=== PATIENT | male | born 1965 | race Hispanic/Latino ===

== ENCOUNTER 2017-07-05 18:28 | Inpatient (IN) | payer MEDICAID ==
--- NOTE | 2017-07-05 19:21 | C.PDOC ---
History Of Present Illness Patient presents to the ER after he used an 8 ball of cocaine along with other drugs stating he wants to jump in front of a train. Denies homicidal ideation or physical complaints at this time. Time Seen by Provider: 07/05/17 19:21 Chief Complaint (Nursing): Psychiatric Evaluation History Per: Patient History/Exam Limitations: no limitations Onset/Duration Of Symptoms: Hrs Current Symptoms Are (Timing): Still Present Suicide/Self Injury Attempted (Context): None Modifying Factor(s): Cocaine Severity: None Pain Scale Rating Of: 0 Associated Symptoms: Suicidal Plan. denies: Depression, Other (Homicidal ideation) Involuntary Hold By: None Recent travel outside of the [place]: No Additional History Per: Patient Past Medical History Reviewed: Historical Data, Nursing Documentation, Vital Signs Vital Signs: Last Vital Signs Temp 98.1 F 07/05/17 22:31 Pulse 72 07/05/17 22:31 Resp 18 07/05/17 22:31 BP 95/48 L 07/05/17 22:31 Pulse Ox 98 07/05/17 23:31 - Medical History PMH: Anxiety, Bipolar Disorder, Depression, HTN Family History: States: No Known Family Hx - Social History Hx Alcohol Use: Yes Hx Substance Use: Yes - Immunization History Hx Tetanus Toxoid Vaccination: No Hx Influenza Vaccination: No Hx Pneumococcal Vaccination: No Review Of Systems Constitutional: Negative for: Fever, Chills Cardiovascular: Negative for: Chest Pain, Palpitations Respiratory: Negative for: Cough, Shortness of Breath Gastrointestinal: Negative for: Nausea, Vomiting Musculoskeletal: Negative for: Back Pain Skin: Positive for: Other (tatoos). Negative for: Rash Neurological: Negative for: Weakness Psych: Positive for: Depression, Suicidal ideation (Jump in front of train). Negative for: Other (Homicidal ideation) Physical Exam - Physical Exam Appears: Non-toxic Skin: Warm, Dry Head: Normacephalic Eye(s): bilateral: Normal Inspection Oral Mucosa: Moist Neck: Supple Chest: Symmetrical, No Tenderness Cardiovascular: Rhythm Regular Respiratory: No Rales, No Rhonchi, No Wheezing Gastrointestinal/Abdominal: Soft, No Tenderness Extremity: Normal ROM Extremity: Bilateral: Atraumatic Neurological/Psych: Oriented x3 Gait: Steady ED Course And Treatment - Laboratory Results Result Diagrams: 07/05/17 19:25 07/05/17 19:25 O2 Sat by Pulse Oximetry: 98 (room air) Pulse Ox Interpretation: Normal Progress Note: Blood work and urinalysis ordered. Crisis notified. Disposition Discussed With Dr.: Ashlie Kirkland Comment: accepted the pt on her service and took over the care at 12:18AM Doctor Will See Patient In The: Hospital Counseled Patient/Family Regarding: Studies Performed, Diagnosis - Disposition Disposition: HOSPITALIZED Disposition Time: 19:21 Condition: FAIR Forms: [facility] (Stateless) - Clinical Impression Clinical Impression: Alcohol abuse, Cocaine abuse, Major depressive disorder, recurrent, unspecified - Scribe Statement The provider has reviewed the documentation as recorded by the Scribe Kvng Camarillo All medical record entries made by the Scribe were at my direction and personally dictated by me. I have reviewed the chart and agree that the record accurately reflects my personal performance of the history, physical exam, medical decision making, and the department course for this patient. I have also personally directed, reviewed, and agree with the discharge instructions and disposition. Decision To Admit - Pt Status Changed To: Hospital Disposition Of: Inpatient - Admit Certification Admit to Inpatient:: After my assessment, the patient will require hospitalization for at least two midnights. This is because of the severity of symptoms shown, intensity of services needed, and/or the medical risk in this patient being treated as an outpatient. - InPatient: Physician Admission Certification: I certify that this patient requires 2 or more midnights of care for the following reason:: After my assessment, the patient will require hospitalization for at least two midnights. This is because of the severity of symptoms shown, intensity of services needed, and/or the medical risk in this patient being treated as an outpatient. - . Bed Request Type: Psychiatry Admitting Physician: Ashlie Kirkland Patient Diagnosis: Alcohol abuse, Cocaine abuse, Major depressive disorder, recurrent, unspecified
[2017-07-05 19:34] LABS: BASO # 0.1 K/uL (0.0-0.2); BASO % 0.8 % (0.0-2.0); EOS % 0.4 % (0.0-4.0); HEMOGLOBIN 12.6 g/dL (12.0-18.0); LYMPH # 1.9 K/uL (1.0-4.3); MEAN CELL VOLUME 101.2 fL (80.0-94.0); MEAN CORPUSCULAR HEMOGLOBIN 34.9 pg (27.0-31.0); MEAN CORPUSCULAR HGB CONC 34.5 g/dL (33.0-37.0); MEAN PLATELET VOLUME 6.6 fL (7.2-11.7); MONO # 0.5 K/uL (0.0-0.8); MONO % 6.7 % (0.0-10.0); NEUT # 4.6 K/uL (1.8-7.0); NEUT % 65.1 % (50.0-75.0); RBC 3.6 Mil/uL (4.40-5.90); RED CELL DISTRIBUTION WIDTH 12.8 % (11.5-14.5); WHITE BLOOD COUNT 7.1 K/uL (4.8-10.8)
[2017-07-05 19:35] LABS: URINE BILIRUBIN NEGATIVE (NEGATIVE); URINE BLOOD 1+ (NEGATIVE); URINE CLARITY Clear (Clear); URINE COLOR Yellow (YELLOW); URINE GLUCOSE (UA) NORMAL (Normal); URINE LEUKOCYTE ESTERASE NEG Leu/uL (Negative); URINE PROTEIN NEGATIVE (NEGATIVE); URINE UROBILINOGEN NORMAL mg/dL (0.2-1.0)
[2017-07-05 19:46] LABS: ALB/GLOB RATIO 1.5 (1.0-2.1); ALBUMIN 4.1 g/dL (3.5-5.0); ALT/SGPT 15 U/L (21-72); AST/SGOT 50 U/L (17-59); BLOOD UREA NITROGEN 11 mg/dL (9-20); CALCIUM 7.9 mg/dl (8.6-10.4); GFR AFRICAN-AMERICAN > 60; GFR NON-AFRICAN AMERICAN > 60
[2017-07-05 19:50] LABS: BARBITURATES, UR NEGATIVE (NEGATIVE); BENZODIAZEPINES, UR NEGATIVE (NEGATIVE); OPIATES, UR NEGATIVE (NEGATIVE); PHENCYCLIDINE, UR NEGATIVE (NEGATIVE)
--- NOTE | 2017-07-06 01:05 | PCM.BM ---
<Calvin Marquez - Last Filed: 07/06/17 01:02> Treatment Plan Problems - Problems identified on initial assessmt DEPRESSION Date Initiated: 07/06/17 Time Initiated: 01:00 Assessment reference: NA Status: Active SUBSTANCE ABUSE Date Initiated: 07/06/17 Time Initiated: 01:00 Assessment reference: NA Status: Active Treatment assets and liabiliti Patient Assests: cooperative, self-reliant, ADL independent, good support system , negotiates basic needs Patient Liabilities: live alone, financial problems, substance abuse, medical problems, legal issue - Milieu Protocol Maintain good personal hygiene: daily Encourage regular showers, daily Remind patient to perform daily oral care, daily Assist patient to perform ADL's Maintain personal safety: every shift Educate patient to report safety concerns to staff, every shift Monitor environment for contraband/sharps Medication safety: Monitor for expected outcome, potential side effects: every shift, Assess barriers to learning: every shift, Assess readiness for medication education: every shift <Beth Gutierrez - Last Filed: 07/06/17 11:40> Family Contact Family involvement: Family/SO is involved Family contact: Patient declines to allow family contact at present - Goals for Treatment Patient goals for treatment: "I want to go back to outpatient treatment." Discharge/Continuing Care - Education Needs Education Needs: Patient Medication, Patient Coping Skills - Discharge Discharge Criteria: Tolerates medication w/o severe side effects, No longer exhibiting s/s of withdrawal, Reduction of target symptoms Discharge to:: Home, With Family - Treatment Team Participation Discussed with Family/SO: No Was Patient/Family/SO present at Treatment Team Meeting: Yes <Gallo Fofana - Last Filed: 07/06/17 11:41> - Diagnosis (1) Major depressive disorder, recurrent, unspecified Status: Acute Interventions: 07/06/17 11:41 * Assess/adjust medications daily and /or as needed * See patient on an individual basis 7x/week to assess symptoms of depression * Monitor for side effects & effectiveness of medications * (2) Alcohol abuse Status: Acute Interventions: 07/06/17 11:41 * Assess 7x/week regarding severity of withdrawal * Educate regarding risks, benefits, side effects and alternatives of medications * Use Motivational Interviewing for abstinence * Use CBT for relapse prevention * Medication management for withdrawal symptoms * Encourage medication assisted treatment *
[2017-07-06] MEDS: Multiple Vitamins Tab PO SCH (10:00)
--- NOTE | 2017-07-06 11:38 | PCM.PSYCH ---
Initial Psychiatric Evaluation - Initial Psychiatric Evaluation Type of Admission: Voluntary Legal Status: Capacity Chief Complaint (in patient's own words): I was feeling depressed and suicidal.' History of Present Illness and Precipitating Events: The patient is a 52 year old male who presents to [facility] for suicidal ideation with a plan to jump in front of a train. The patient reports, My life is messed up. The patient has been hospitalized 27 times at [facility], but last hospitalization was 3 years ago. The patient was then referred to the [facility] program at [facility] for aftercare. The patient reports that I stop taking my meds because I was starting to feel better. The patient is also receiving services from [facility], Food Safety Officer, [employer], [id number]. The patient reports substance use of Alcohol, Marijuana, and Cocaine. The patients last use of Alcohol is 07/05/17, 14-15 beers daily and Cocaine gram, intranasal. The patient could not recall the last use of Marijuana. The patient also reports using Mushrooms and crushing his Wellbrutrim and sniffing it a couple of weeks ago. During the evaluation the patient was very anxious, had rapid and pressured speech, pre-occupied, disorganized thought, and flight of ideas. The patient at times was delusional and began rapping. The patient also began to curse and later apologized to this automatic typewriter inspector for his behavior. Pt reports at times feelings of hopelessness and helplessness and poor asleep. He also reports withdrawal symptoms including headaches, shakes, anxiety and sweating. PMH None reported Current Medications: Active Medications Generic Name Dose Route Start Last Admin Trade Name Abdoulq PRN Reason Stop Dose Admin Chlordiazepoxide 25 mg 07/06/17 06:00 07/06/17 05:58 Librium PO 07/11/17 05:59 25 mg Q6 TORSTEN Administration Taper Clonidine HCl 0.1 mg 07/06/17 01:12 07/06/17 10:01 Catapres PO 0.1 mg Q4H PRN Administration Symptoms of alcohol withdrawl Folic Acid 1 mg 07/06/17 10:00 07/06/17 10:00 Folic Acid PO 1 mg DAILY TORSTEN Administration Hydroxyzine HCl 25 mg 07/06/17 01:16 07/06/17 06:23 Atarax PO 25 mg Q6H PRN Administration Anxiety Multivitamins 1 tab 07/06/17 10:00 07/06/17 10:00 Hexavitamin PO 1 tab DAILY TORSTEN Administration Trazodone HCl 50 mg 07/06/17 01:12 Desyrel PO HS PRN Insomnia Past Psychiatric History - Past Psychiatric History Previous Treatment History: Inpatient Pertinent Medical Hx (Current Medical&Sleep Prob, Allergies): Allergies Allergy/AdvReac Type Severity Reaction Status Date / Time No Known Allergies Allergy Unverified 07/05/17 18:47 Escitalopram Oxalate [Lexapro] 5 mg PO DAILY 07/05/17 Tegretol 07/05/17 buPROPion SR [Wellbutrin SR] 100 mg PO DAILY 07/05/17 clonazePAM [clonAZEPAM] 1 mg PO DAILY 07/05/17 Review of Systems - Review of Systems All systems: reviewed and no additional remarkable complaints except - Psychiatric Psychiatric: Anxiety, Auditory Hallucinations, Irritability, Suicidal Ideation Mental Status Examination - Personal Presentation Personal Presentation: Looks stated age - Affect Affect: Constricted, Depressed - Motor Activity Motor Activity: Calm - Reliability in Providing Information Reliability in Providing Information: Fair - Speech Speech: Organized - Mood Mood: Depressed, Anxious - Formal Thought Process Formal Thought Process: Hallucinations, Paranoia - Hallucinations/Delusions Hallucinations: Auditory Delusions: Persecution - Obsessions/Compulsions Obsessions: No Compulsions: No - Cognitive Functions Orientation: Person, Place, Situation, Time Sensorium: Alert Attention/Concentration: Attentive Abstract Thinking: [place] Estimate of Intelligence: Below average Judgement: Imparied, as evidence by: Poor judgement, Imparied, as evidence by: Lack of insight into illness - Risk Risk: Suicidal, Diminished functioning - Limitations Limitations: Living alone DSM 5 DX - DSM 5 DSM 5 Diagnosis: Bipolar disorder mixed severe with psychotic features Alcohol use disorder severe Alcohol withdrawal Cocaine use disorder severe Cannabis use disorder severe - Recommended/Plan of Treatment Treatment Recommendations and Plan of Treatment: Bipolar disorder mixed severe with psychotic features -CBT -Psychoeducation -Supportive therapy, group therapy, individual therapy -Carbamazapine 200 mg PO BID -Lexapr 5 mg PO Daily -Trazodone 100 mg by mouth daily at bedtime -Seroquel 100 mg by mouth daily at bedtime Alcohol use disorder severe -CBT -Psychoeducation -Supportive therapy, individual therapy -Use [place] for abstinence Alcohol withdrawal -CBT -Psychoeducation -Supportive therapy, individual therapy -Librium taper when scoring -Librium PRN Cocaine use disorder severe -Monitor signs and symptoms -Use [place] for abstinence Cannabis use disorder severe -CBT -Psychoeducation -Supportive therapy, individual therapy -Use [place] for abstinence
[2017-07-07] MEDS: Multiple Vitamins Tab PO SCH (09:10)
--- NOTE | 2017-07-07 23:35 | PCM.PYCHPN ---
Psychiatric Progress Note - Psychiatric Progress Note Patient seen today, length of contact: 15 Minutes Mental Status Examination - Cognitive Function Orientation: Person, Place, Situation, Time - Mood Mood: Depressed, Anxious - Affect Affect: Constricted, Depressed - Formal Thought Process Formal Thought Process: Hallucinations, Paranoia - Homicidal Ideation Homicidal Ideation: No
[2017-07-08] MEDS: Multiple Vitamins Tab PO SCH (09:57)
[2017-07-09] MEDS: Multiple Vitamins Tab PO SCH (09:16)
--- NOTE | 2017-07-09 10:56 | PCM.PYCHPN ---
Psychiatric Progress Note - Psychiatric Progress Note Patient seen today, length of contact: 15 Minutes Patient Chief Complaint: I was feeling depressed and suicidal.' Mental Status Examination - Cognitive Function Orientation: Person, Place, Situation, Time - Mood Mood: Depressed, Anxious - Affect Affect: Constricted, Depressed - Formal Thought Process Formal Thought Process: Hallucinations, Paranoia - Homicidal Ideation Homicidal Ideation: No Goal/Treatment Plan - Goal/Treatment Plan Progress Toward Problem(s) and Goals/Treatment Plan: Bipolar disorder mixed severe with psychotic features -CBT -Psychoeducation -Supportive therapy, group therapy, individual therapy -Carbamazapine 200 mg PO BID -Lexapr 5 mg PO Daily -Trazodone 100 mg by mouth daily at bedtime -Seroquel 100 mg by mouth daily at bedtime Alcohol use disorder severe -CBT -Psychoeducation -Supportive therapy, individual therapy -Use [place] for abstinence Alcohol withdrawal -CBT -Psychoeducation -Supportive therapy, individual therapy -Librium taper when scoring -Librium PRN Cocaine use disorder severe -Monitor signs and symptoms -Use [place] for abstinence Cannabis use disorder severe -CBT -Psychoeducation -Supportive therapy, individual therapy -Use [place] for abstinence
[2017-07-10] MEDS: Multiple Vitamins Tab PO SCH (09:54)
--- NOTE | 2017-07-10 12:16 | PCM.PYCHPN ---
Psychiatric Progress Note - Psychiatric Progress Note Patient seen today, length of contact: 15 Minutes Patient Chief Complaint: I was feeling depressed and suicidal.' Mental Status Examination - Cognitive Function Orientation: Person, Place, Situation, Time - Mood Mood: Depressed, Anxious - Affect Affect: Constricted, Depressed - Formal Thought Process Formal Thought Process: Hallucinations, Paranoia - Homicidal Ideation Homicidal Ideation: No Goal/Treatment Plan - Goal/Treatment Plan Progress Toward Problem(s) and Goals/Treatment Plan: Bipolar disorder mixed severe with psychotic features -CBT -Psychoeducation -Supportive therapy, group therapy, individual therapy -Carbamazapine 200 mg PO BID -Lexapr 5 mg PO Daily -Trazodone 100 mg by mouth daily at bedtime -Seroquel 100 mg by mouth daily at bedtime Alcohol use disorder severe -CBT -Psychoeducation -Supportive therapy, individual therapy -Use [place] for abstinence Alcohol withdrawal -CBT -Psychoeducation -Supportive therapy, individual therapy -Librium taper when scoring -Librium PRN Cocaine use disorder severe -Monitor signs and symptoms -Use [place] for abstinence Cannabis use disorder severe -CBT -Psychoeducation -Supportive therapy, individual therapy -Use [place] for abstinence
[2017-07-10 14:41] VITALS: O2SAT 99
[2017-07-11 06:33] VITALS: TEMP 97.6
[2017-07-11] MEDS: Multiple Vitamins Tab PO SCH (10:38)
[2017-07-11 15:52] VITALS: PULSE 80
[2017-07-12 06:26] VITALS: BP 125/86; RESP 19
[2017-07-12] MEDS: Multiple Vitamins Tab PO SCH (09:33)
--- NOTE | 2017-07-12 10:25 | PCM.PYCHPN ---
Psychiatric Progress Note - Psychiatric Progress Note Patient seen today, length of contact: 15 Minutes Patient Chief Complaint: I was feeling depressed and suicidal.' Mental Status Examination - Cognitive Function Orientation: Person, Place, Situation, Time - Mood Mood: Depressed, Anxious - Affect Affect: Constricted, Depressed - Formal Thought Process Formal Thought Process: Hallucinations, Paranoia - Homicidal Ideation Homicidal Ideation: No Goal/Treatment Plan - Goal/Treatment Plan Progress Toward Problem(s) and Goals/Treatment Plan: Bipolar disorder mixed severe with psychotic features -CBT -Psychoeducation -Supportive therapy, group therapy, individual therapy -Carbamazapine 200 mg PO BID -Lexapr 5 mg PO Daily -Trazodone 100 mg by mouth daily at bedtime -Seroquel 100 mg by mouth daily at bedtime Alcohol use disorder severe -CBT -Psychoeducation -Supportive therapy, individual therapy -Use [place] for abstinence Alcohol withdrawal -CBT -Psychoeducation -Supportive therapy, individual therapy -Librium taper when scoring -Librium PRN Cocaine use disorder severe -Monitor signs and symptoms -Use [place] for abstinence Cannabis use disorder severe -CBT -Psychoeducation -Supportive therapy, individual therapy -Use [place] for abstinence
--- NOTE | 2017-07-12 10:27 | PCM.PYCHDC ---
Mental Status Examination - Mental Status Examination Orientation: Person, Place, Situation, Time Memory: Intact Mood: Neutral Affect: Constricted Speech: Soft Attention: WNL Concentration: WNL Association: WNL Fund of Knowledge: WNL Formal Thought Process: No Impairment Description of patient's judgement and insight: good, fair Psychotic Thoughts and Behaviors: denies any AVH Suicidal Ideation: No Current Homicidal Ideation?: No Discharge Summary - Discharge Note Reason for Hospitalization: The patient is a 52 year old male who presents to [facility] for suicidal ideation with a plan to jump in front of a train. The patient reports, My life is messed up. The patient has been hospitalized 27 times at [facility], but last hospitalization was 3 years ago. The patient was then referred to the [facility] program at [facility] for aftercare. The patient reports that I stop taking my meds because I was starting to feel better. The patient is also receiving services from [facility], Decision Science Analyst, [employer], [id number]. The patient reports substance use of Alcohol, Marijuana, and Cocaine. The patients last use of Alcohol is 07/05/17, 14-15 beers daily and Cocaine gram, intranasal. The patient could not recall the last use of Marijuana. The patient also reports using Mushrooms and crushing his Wellbrutrim and sniffing it a couple of weeks ago. During the evaluation the patient was very anxious, had rapid and pressured speech, pre-occupied, disorganized thought, and flight of ideas. The patient at times was delusional and began rapping. The patient also began to curse and later apologized to this process description writer for his behavior. Pt reports at times feelings of hopelessness and helplessness and poor asleep. He also reports withdrawal symptoms including headaches, shakes, anxiety and sweating. Consultations:: List each consultation separately and include: 1. Reason for request. 2. Findings. 3. Follow-up Summary of Hospital Course include:: 1. Description of specific treatment plan utilized for patients during their course of treatmen. 2. Summarize the time- course for resolution of acute symptoms and/or regressed behaviors. 3. Describe issues identified and worked on during hospitalization. 4. Describe medication utilized. 5. Describe medical problems identified and treated. 6. Reassessment of suicide risk Summary of Hospital Course: The patient is a 52 year old male who presents to [facility] for suicidal ideation with a plan to jump in front of a train. The patient reports, My life is messed up. The patient has been hospitalized 27 times at [facility], but last hospitalization was 3 years ago. The patient was then referred to the [facility] program at [facility] for aftercare. The patient reports that I stop taking my meds because I was starting to feel better. The patient is also receiving services from [facility], Decision Science Analyst, [employer], [id number]. The patient reports substance use of Alcohol, Marijuana, and Cocaine. The patients last use of Alcohol is 07/05/17, 14-15 beers daily and Cocaine gram, intranasal. The patient could not recall the last use of Marijuana. The patient also reports using Mushrooms and crushing his Wellbrutrim and sniffing it a couple of weeks ago. During the evaluation the patient was very anxious, had rapid and pressured speech, pre-occupied, disorganized thought, and flight of ideas. The patient at times was delusional and began rapping. The patient also began to curse and later apologized to this process description writer for his behavior. Pt reports at times feelings of hopelessness and helplessness and poor asleep. He also reports withdrawal symptoms including headaches, shakes, anxiety and sweating. PMH None reported - Diagnosis (1) Major depressive disorder, recurrent, unspecified Current Visit: Yes Status: Acute (2) Alcohol abuse Current Visit: Yes Status: Acute - Final Diagnosis (DSM 5) Condition upon Discharge: FAIR DSM 5: Bipolar disorder mixed severe with psychotic features Alcohol use disorder severe Alcohol withdrawal Cocaine use disorder severe Cannabis use disorder severe Disposition: HOME/ ROUTINE Follow-up Treatment Plan: Bipolar disorder mixed severe with psychotic features -CBT -Psychoeducation -Supportive therapy, group therapy, individual therapy -Carbamazapine 200 mg PO BID -Lexapr 5 mg PO Daily -Trazodone 100 mg by mouth daily at bedtime -Seroquel 100 mg by mouth daily at bedtime Alcohol use disorder severe -CBT -Psychoeducation -Supportive therapy, individual therapy -Use [place] for abstinence Alcohol withdrawal -CBT -Psychoeducation -Supportive therapy, individual therapy -Librium taper when scoring -Librium PRN Cocaine use disorder severe -Monitor signs and symptoms -Use [place] for abstinence Cannabis use disorder severe -CBT -Psychoeducation -Supportive therapy, individual therapy -Use [place] for abstinence Prescriptions/Medication Reconciliation: carBAMazepine [Tegretol] 200 mg PO Q12 #60 tab Escitalopram Oxalate [Lexapro] 5 mg PO DAILY #30 tablet QUEtiapine [Seroquel] 100 mg PO HS #30 tab - Smoking Cessation Smoking Cessation Medication prescribed: No - Antipsychotic Medications Pt discharged on 2 or more routine antipsychotic medications: No
== END 2017-07-12 11:59 | disposition home or self-care (01) | DRG 430 ==
LOC: EDBD 18:28 → C.ER 18:28 → C.5E 07-06 00:16
PROVIDERS: ADMIT Psychiatry & Neurology Psychiatry; ATTEND Psychiatry & Neurology Psychiatry
PROC: GZHZZZZ Group Psychotherapy (ICD-10-PCS; principal; 2017-07-06)
PROC: HZ52ZZZ Individual Psychotherapy for Substance Abuse Treatment, Cognitive-Behavioral (ICD-10-PCS; 2017-07-06)
PROC: GZ58ZZZ Individual Psychotherapy, Cognitive-Behavioral (ICD-10-PCS; 2017-07-06)
PROC: GZ56ZZZ Individual Psychotherapy, Supportive (ICD-10-PCS; 2017-07-06)
PROC: HZ59ZZZ Individual Psychotherapy for Substance Abuse Treatment, Supportive (ICD-10-PCS; 2017-07-06)
PROC: HZ56ZZZ Individual Psychotherapy for Substance Abuse Treatment, Psychoeducation (ICD-10-PCS; 2017-07-06)
PROC: HZ2ZZZZ Detoxification Services for Substance Abuse Treatment (ICD-10-PCS; 2017-07-06)
PROC: HZ42ZZZ Group Counseling for Substance Abuse Treatment, Cognitive-Behavioral (ICD-10-PCS; 2017-07-06)
PROC: HZ46ZZZ Group Counseling for Substance Abuse Treatment, Psychoeducation (ICD-10-PCS; 2017-07-06)
DX: F31.64 Bipolar disorder, current episode mixed, severe, with psychotic features (principal); F14.20 Cocaine dependence, uncomplicated; F10.239 Alcohol dependence with withdrawal, unspecified; F12.20 Cannabis dependence, uncomplicated; R45.851 Suicidal ideations; F41.9 Anxiety disorder, unspecified; I10 Essential (primary) hypertension